=== PATIENT | female | born 1970 | race African-American/Black ===

== ENCOUNTER 2018-06-01 06:20 | Emergency (ER) | payer BC ==
[~2018-06-01] VITALS: Ht 165.1 cm; Wt 72.6 kg
--- NOTE | 2018-06-01 07:24 | PHYS DOC ---
Adult General Chief Complaint Chief Complaint: LACERATION/AVULSION [facility] HPI Patient is a 48 year old female presented to ER today for evaluation of head injury. Patient says she was moving a metal beam at work, when it flipped over and struck her on her forehead. Patient denies any loss of consciousness. Patient denied any other injury. She is up to date of her tetanus vaccination status. Review of Systems Review of Systems Constitutional: Denies fever or chills [] Eyes: Denies change in visual acuity, redness, or eye pain [] HENT: positive for headache, forehead laceration , nose pain. Denies nasal congestion or sore throat [] Respiratory: Denies cough or shortness of breath [] Cardiovascular: No additional information not addressed in HPI [] GI: Denies abdominal pain, nausea, vomiting, bloody stools or diarrhea [] : Denies dysuria or hematuria [] Musculoskeletal: Denies back pain or joint pain [] Integument: skin laceration on forehead. Neurologic: Positive for headache. Endocrine: Denies polyuria or polydipsia [] All other systems were reviewed and found to be within normal limits, except as documented in this note. Current Medications Current Medications Current Medications Medications (Trade) Dose Ordered Sig/Danielle Start Time Stop Time Status Last Admin Dose Admin Lidocaine/ Epinephrine (LIDOCAINE 1%-EPI 1:100,000 Multi-Dose) 20 ml 1X ONCE 06/01/18 07:30 06/01/18 07:31 DC 06/01/18 07:41 20 ML Allergies Allergies Allergies Coded Allergies Type Severity Reaction Last Updated Verified No Known Drug Allergies 06/01/18 No Physical Exam Physical Exam Constitutional: Well developed, well nourished, no acute distress, non-toxic appearance. [] HENT: 2 CM DEEP LACERATION MIDDLE FOREHEAD AREA BETWEEN THE TWO EYE BROWN, LEFT UPPER EYE BROWN LACERATION 2.5 CM, NO EYELID INVOLVED. Eyes: PERRLA, EOMI, conjunctiva normal, no discharge. [] Neck: Normal range of motion, no tenderness, supple, no stridor. [] Cardiovascular:Heart rate regular rhythm, no murmur [] Lungs & Thorax: Bilateral breath sounds clear to auscultation [] Abdomen: Bowel sounds normal, soft, no tenderness, no masses, no pulsatile masses. [] Skin: LACERATION ON FOREHEAD Back: No tenderness, no CVA tenderness. [] Extremities: No tenderness, no cyanosis, no clubbing, ROM intact, no edema. [] Neurologic: Alert and oriented X 3, normal motor function, normal sensory function, no focal deficits noted. [] Psychologic: Affect normal, judgement normal, mood normal. [] Current Patient Data Vital Signs Vital Signs Date Time Temp Pulse Resp B/P (MAP) Pulse Ox O2 Delivery O2 Flow Rate FiO2 06/01/18 09:28 96 18 147/70 (95) 100 Room Air 06/01/18 07:15 99.0 99.0 EKG EKG [] Radiology/Procedures Radiology/Procedures [][facility] [address] [place] [address] IMAGING REPORT Signed PATIENT: YONNY BENITO ACCOUNT: [id number] : 1970 LOCATION: ER AGE: 48 SEX: F EXAM STATUS: REG ER ORD. PHYSICIAN: NINI PACK DO REASON: hit by a metal beam on head and face this morning at work PROCEDURE: CT HEAD AND MAXILLOFACIAL WO CT of the head without contrast, 06/01/2018: HISTORY: Injury, left for head laceration The ventricles are within normal limits in size. There is no shift of the midline structures. There is no evidence of acute intracranial hemorrhage or mass effect. IMPRESSION: No acute intracranial abnormality is detected. CT of the facial bones without contrast, 06/01/2018: HISTORY: Injury There is a small soft tissue contusion in the frontal region just left of midline with a bubble of gas in the subcutaneous soft tissues at that level compatible with a history of a laceration. This soft tissue swelling extends into the region of the left eyelid. No underlying fracture is evident. The orbital contents are unremarkable. No free fluid is present in the paranasal sinuses. IMPRESSION: No acute facial bone abnormality is detected. RS Compliance Statement: One or more of the following individualized dose reduction techniques were utilized for this examination: 1. Automated exposure control 2. Adjustment of the mA and/or kV according to patient size 3. Use of iterative reconstruction technique Electronically signed by: Deejay Ribeiro MD (06/01/2018 8:13 AM) [facility] DICTATED and SIGNED BY: DEEJAY RIBEIRO MD DATE: 06/01/18 0808 Course & Med Decision Making Course & Med Decision Making Pertinent Labs and Imaging studies reviewed. (See chart for details) [] Dragon Disclaimer Dragon Disclaimer This electronic medical record was generated, in whole or in part, using a voice recognition dictation system. Laceration Repair Lac Repair Indication: FOREHEAD LACERATION/FACIAL LACERATION, 2 cm on left upper eye brown , 2.5 cm forehead. Procedure: The patient was placed in the appropriate position and anesthesia around the The wound was anesthesized with 15 mg of 1% lidocaine with epinephrine]. The area was then [CLEANSED/DEBRIDED]. The laceration was closed on skin with 12 sutures, 5-0- nylon, 3 sutures, 5-0-vicryl was used to closed subcutaneously in the forehead wound . The wound area was then dressed with gauge. Total repaired wound length:4.5 cm Other Items: [OTHER ITEMS] The patient tolerated the procedure well. Complications: NONE. Departure Departure Impression: Primary Impression: Facial laceration Additional Impression: Head injury Disposition: 01 HOME, SELF-CARE Condition: STABLE Referrals: NO PCP (PCP) FOLLOW UP WITH YOUR DOCTOR FOR SUTURES REMOVAL IN 7 DAYS Patient Instructions: Facial Laceration, Head Injury, Adult Problem Qualifiers NINI PACK DO Jun 01, 2018 07:24
[2018-06-01] MEDS ORDERED: LIDOCAINE 1%/EPI 1:100,000 20 ML VIAL. INJ ONE (07:30)
--- NOTE | 2018-06-01 08:16 | RAD ---
CT of the head without contrast, 06/01/2018: HISTORY: Injury, left for head laceration The ventricles are within normal limits in size. There is no shift of the midline structures. There is no evidence of acute intracranial hemorrhage or mass effect. IMPRESSION: No acute intracranial abnormality is detected. CT of the facial bones without contrast, 06/01/2018: HISTORY: Injury There is a small soft tissue contusion in the frontal region just left of midline with a bubble of gas in the subcutaneous soft tissues at that level compatible with a history of a laceration. This soft tissue swelling extends into the region of the left eyelid. No underlying fracture is evident. The orbital contents are unremarkable. No free fluid is present in the paranasal sinuses. IMPRESSION: No acute facial bone abnormality is detected. PQRS Compliance Statement: One or more of the following individualized dose reduction techniques were utilized for this examination: 1. Automated exposure control 2. Adjustment of the mA and/or kV according to patient size 3. Use of iterative reconstruction technique Electronically signed by: Deejay Daigle MD (06/01/2018 8:13 AM) [facility]
[2018-06-01 09:28] VITALS: BP 147/70
== END 2018-06-01 09:28 | disposition home or self-care (01) ==
LOC: ER 06:20
DX: S01.81XA Laceration without foreign body of other part of head, initial encounter (principal); W20.8XXA Other cause of strike by thrown, projected or falling object, initial encounter; Y93.89 Activity, other specified; Y92.89 Other specified places as the place of occurrence of the external cause; Y99.0 Civilian activity done for income or pay
CPT/HCPCS: 12013; 70450; 70486; 99284; J3490; 99283